=== PATIENT | male | born 1995 | race Caucasian/White ===

== ENCOUNTER 2019-12-19 13:25 | Emergency (ER) | payer OTHER ==
[2019-12-19 16:45] VITALS: BP 119/79
== END 2019-12-19 17:00 | disposition home or self-care (01) | DRG 950 ==
LOC: ED 13:25
DX: S01.90XD Unspecified open wound of unspecified part of head, subsequent encounter (principal); F17.210 Nicotine dependence, cigarettes, uncomplicated; X58.XXXD Exposure to other specified factors, subsequent encounter